=== PATIENT | female | born 1980 | race African-American/Black ===

== ENCOUNTER → 2017-04-27 | Outpatient (CLI) | payer BC ==
--- NOTE | 2017-04-27 09:22 | USB ---
EXAMINATION TYPE: US breast workup limited RT DATE OF EXAM: 04/27/2017 COMPARISON: Mammogram dated 04/27/2017. CLINICAL HISTORY: ABNORMAL MAMMOGRAM. Targeted right breast ultrasound was performed in regards to an area of architectural distortion with in the upper inner right breast seen on the mammogram of 04/27/2017 and additional approximately 6 mm m ass in the central upper right breast. At the 1:00 position there is a benign sonographic cyst measuring 5 x 3 x 5 mm demonstrating increase d through transmission. This a benign finding and requires no further follow-up, likely corresponding to the 6 mm mass in the central upper right breast. At the 12:00 position there is a hypoechoic 0.6 x 0.4 x 0.3 cm mass with an angular margin and periph eral vascular flow, for which ultrasound-guided core needle biopsy is recommended. It is uncertain if this corresponds to the area of architectural distortion within the upper inner right breast as the office machine technician notes the patient's breasts to be very mobile. Correlation with post biopsy marker mammog zhang is recommended. If this does not correlate with the area of architectural distortion, 6 month fol low-up would be recommended for that finding. IMPRESSION: Suspicious finding. Ultrasound guided core biopsy is recommended for a 6 mm mass at the 12:00 position within the right breast.
--- NOTE | 2017-05-01 09:05 | MM ---
Reason for exam: screening (asymptomatic). Baseline mammogram. History: Took hormonal contraceptives beginning at age 19. Physical Findings: Nurse did not find any significant physical abnormalities on exam. MG Screening Mammo w CAD Bilateral CC and MLO view(s) were taken. ASSESSMENT: Incomplete: need additional imaging evaluation, BI-RAD 0 RECOMMENDATION: Special view mammogram of the right breast. If lesion persists on supplemental views, image directed ultrasound is recommended. [facility] will attempt to contact patient to return for supplemental views and ultrasound if indicated.
--- NOTE | 2017-05-01 09:07 | MM ---
Reason for exam: additional evaluation requested from abnormal screening. History: Took hormonal contraceptives beginning at age 19. Physical Findings: Breast exam preformed at baseline screening. MG Work Up Mamm w CAD RT ML, spot compression CC, and spot compression MLO view(s) were taken of the right breast. Focal asymmetry upper inner quadrant, 9-10cm from nipple, persists on spot views. These results were verbally communicated with the patient and result sheet given to the patient on 04/27/17. ASSESSMENT: Incomplete: need additional imaging evaluation, BI-RAD 0 RECOMMENDATION: Ultrasound of the right breast.
== END | disposition home or self-care (01) ==
LOC: RADMAMWWP 07:37
PROVIDERS: ATTEND Obstetrics & Gynecology
DX: Z12.31 Encounter for screening mammogram for malignant neoplasm of breast (principal); R92.8 Other abnormal and inconclusive findings on diagnostic imaging of breast
CPT/HCPCS: 76642; G0202; G0206

== ENCOUNTER → 2017-05-05 | Day surgery (SDC) | payer BC ==
[2017-05-05 10:56] VITALS: RESP 16; BMI 30.4
[2017-05-05 12:43] VITALS: BP 117/78; PULSE 74; TEMP 98.2
--- NOTE | 2017-05-05 13:27 | USB ---
EXAMINATION TYPE: US biopsy breast VAD RT, MG diagnostic mammo RT wo CAD DATE OF EXAM: 05/05/2017 CLINICAL HISTORY: R92.8 ABN MAMMO. Abnormal ultrasound TECHNIQUE: Ultrasound guided core biopsy of right breast with clip placement and follow-up two-view mammogram. COMPARISON: Right breast mammogram and ultrasound studies December 26, 2016 FINDINGS: The procedure of ultrasound guided core biopsy was explained to the patient. Benefits, alternatives, and risks were discussed. An informed consent was then obtained. The patient was placed in supine positioning for imaging and for the procedure. Preprocedure ultrasound redemonstrates a 5 mm oval circumscribed hypoechoic anechoic lesion at 12 to 1:00 position in the right breast. The overlying skin was prepped and draped in usual sterile fashion. Lidocaine was used as anesthetic into the skin. Lidocaine with epinephrine is used as anesthetic into the deeper tissue up to area of concern in the right breast. A perry was made with surgical scalpel. Under ultrasound guidance, a 12-gauge vacuum assisted biopsy gun device was used to obtain 3 core samples. Following this, a biopsy clip was left in lesion. The patient tolerated the procedure well without any immediate complication. The patient was kept in the radiology department for short stay after the procedure and then discharged home in stable condition. Postprocedure mammogram shows successful deployment of the clip without obvious residual lesion though no obvious lesion is seen on background of heterogeneous dense tissue to me on original workup. IMPRESSION: Successful, uncomplicated ultrasound guided core biopsy of area of concern in the right breast, full pathology results to follow. Low index of suspicion noted at time of procedure. Pathology Results: Benign BREAST, RIGHT, CORE BIOPSY: FIBROCYSTIC CHANGES INCLUDING FIBROADENOMATOID HYPERPLASIA, FIBROSIS, CYSTS AND APOCRINE METAPLASIA. Recommendation Follow up mammogram of the right breast in 6 months. (as the clip does not correspond to the mammographic finding) [facility]
== END ==
LOC: RADUSWWP 10:31
PROVIDERS: ATTEND Surgery
DX: R92.8 Other abnormal and inconclusive findings on diagnostic imaging of breast (principal); N62 Hypertrophy of breast; N60.31 Fibrosclerosis of right breast; N60.01 Solitary cyst of right breast; N60.81 Other benign mammary dysplasias of right breast
CPT/HCPCS: 88305; 19083; G0206; A4648; J2001

== ENCOUNTER → 2017-11-10 | Outpatient (CLI) | payer BC ==
--- NOTE | 2017-11-10 08:27 | MM ---
Reason for exam: follow-up at short interval from prior study. Last mammogram was performed 6 months ago. History: Benign US biopsy breast VAD RT of the right breast, May 05, 2017. Took hormonal contraceptives beginning at age 19. Physical Findings: Nurse did not find any significant physical abnormalities on exam. MG 3D Diag Mammo W/Cad RT CC and MLO view(s) were taken of the right breast. Prior study comparison: May 05, 2017, right breast MG diagnostic mammo RT wo CAD. April 27, 2017, right breast MG work up mamm w CAD RT. The breast tissue is heterogeneously dense. This may lower the sensitivity of mammography. The previously questioned upper inner quadrant asymmetry is less defined. No persisting abnormality on the 3D images. These results were verbally communicated with the patient and result sheet given to the patient on 11/10/17. ASSESSMENT: Negative, BI-RAD 1 RECOMMENDATION: Routine screening mammogram of the right breast at age 40.
== END | disposition home or self-care (01) ==
LOC: RADMAMWWP 06:57
PROVIDERS: ATTEND Family Medicine
DX: N60.11 Diffuse cystic mastopathy of right breast (principal)
CPT/HCPCS: 77065; G0279

== ENCOUNTER → 2018-01-19 | Outpatient (CLI) | payer BC ==
--- NOTE | 2018-01-19 23:52 | MR ---
EXAMINATION TYPE: MR lumbar spine wo con DATE OF EXAM: 01/19/2018 COMPARISON: NONE HISTORY: Low back pain / Numbness of Right Leg TECHNIQUE: Multiplanar, multisequence images of the lumbar spine were acquired. Multiplanar multi echo imaging of the lumbar spine was performed without contrast. FINDINGS: Lumbar vertebra have normal spacing and alignment. There is a small posterior disc bulge at L5-S1. Th ere is developmentally adequate spinal canal. There is no spinal stenosis. Neural foramina are widely patent. There is no compression fracture. Visualized sacroiliac joints appear normal. There is no nae mbar paraspinal mass. I see no bony destructive process. IMPRESSION: Small posterior L5-S1 disc bulge. Otherwise negative exam. No fracture. No spinal stenosis.
== END | disposition home or self-care (01) ==
LOC: RADMRIMAIN 20:08
PROVIDERS: ATTEND Nurse Practitioner Family
DX: M51.27 Other intervertebral disc displacement, lumbosacral region (principal)
CPT/HCPCS: 72148

== ENCOUNTER → 2018-04-10 | Outpatient (CLI) | payer BC ==
[2018-04-11 00:56] LABS: Vitamin D 25 Hydroxy 21.4 ng/mL (30.0-100.0)
[2018-04-11 01:30] LABS: Hemoglobin A1C 5.4 % (4.0-6.0)
== END | disposition home or self-care (01) ==
LOC: LABWHC1 15:44
PROVIDERS: ATTEND Psychiatry & Neurology Neurology
DX: G62.9 Polyneuropathy, unspecified (principal)
CPT/HCPCS: 36415; 82306; 82607; 83036

== ENCOUNTER → 2018-04-30 | Outpatient (CLI) | payer BC ==
--- NOTE | 2018-04-30 18:50 | MR ---
EXAMINATION TYPE: MR cervical spine wo con DATE OF EXAM: 04/30/2018 COMPARISON: HISTORY: TECHNIQUE: Multiplanar, multisequence images of the cervical spine were acquired. C2-C3: No evidence for degenerative disc disease. No disc bulge/herniation or protrusion. No Canal stenosis. Foramina are patent bilaterally. C3-C4: Small posterior disc bulge causes minimal anterior mass effect on the thecal sac. C4-C5: No evidence for degenerative disc disease. No disc bulge/herniation or protrusion. No Canal stenosis. Foramina are patent bilaterally. C5-C6: Posterior broad-based disc bulge causes mild anterior mass effect on the thecal sac. No signif icant central stenosis or foraminal encroachment. Minimal spondylosis, endplate discogenic marrow sig nal change. C6-C7: No evidence for degenerative disc disease. No disc bulge/herniation or protrusion. No Canal stenosis. Foramina are patent bilaterally. C7-T1: No evidence for degenerative disc disease. No disc bulge/herniation or protrusion. No Canal stenosis. Foramina are patent bilaterally. Cervical segments are intact. There is normal alignment. Cervical spinal cord is of normal signal. Craniovertebral junction relationships are within normal limits. Some loss of disc signal present a t C5-6. IMPRESSION: Mild degenerative disc disease.
== END ==
LOC: RADMRIMAIN 17:44
PROVIDERS: ATTEND Psychiatry & Neurology Neurology
DX: M51.16 Intervertebral disc disorders with radiculopathy, lumbar region (principal)
CPT/HCPCS: 72141

== ENCOUNTER → 2018-07-11 | Day surgery (SDC) | payer BC ==
[2018-07-09 08:55] VITALS: BMI 31.5
[~2018-07-11] MED LIST: SODIUM CHLORIDE 0.9% 500 ML 500 ML IV SCH
[2018-07-11 10:15] VITALS: TEMP 98.1
--- NOTE | 2018-07-11 11:44 | P.PCN ---
Date of Procedure: 07/11/18 Procedure(s) Performed: Preoperative diagnosis: Multiple sclerosis Post operative diagnoses: Multiple sclerosis Anesthesia= moderate sedation with Versed 2 mg and fentanyl 100 g ,and local infiltration with lidocaine 1% 3 mL. Condition: stable Complication: none. Description of the procedure procedure risk and benefits discussed with the patient and family, consent signed. Patient and the procedure area placed in lateral position back prepped with chlorhexidine 3 times been local infiltration of the skin and subcutaneous tissue with lidocaine 1% 3 mL for skin and subcu interstitial frustrations at L4 5 levels then 22-gauge Quincke- type needle advanced slowly at L4- 5 interlaminar space there was positive cerebrospinal fluid which was clear, no heme, no paresthesia ,total of 8 ML of clear cerebrospinal fluid collected in 4 different tubes 2 mL in each, then the needle removed and a Band-Aid applied and patient tolerated the procedure well without any complications.
[2018-07-11 11:53] LABS: T4, Free (Free Thyroxine) 0.97 ng/dL (0.78-2.19)
[2018-07-11 12:24] VITALS: PULSE 72
[2018-07-11 12:25] VITALS: BP 127/77; RESP 18
[2018-07-11 12:31] LABS: Glucose,CSF 48 mg/dL (40-70); Total Protein,CSF 41 mg/dL (12-60)
[2018-07-11 13:19] LABS: Appearance,CSF Clear; CSF Tube Number 4; Nucleated Cells, CSF 7 u/L (0-5); Red Blood Cell,CSF 3 u/L (0-10)
[2018-07-11 13:57] LABS: Diff, Total Cells Cnt, CSF 100; Mononuclear WBC,CSF 99 %; Polynuclear WBC,CSF 1 %
[2018-07-11 17:09] LABS: Rheumatoid Factor 10 IU/mL (0-15)
[2018-07-11 18:22] LABS: Anti-DNA, DS unit <1.0 IU/mL; DNA Double-Stranded NEGATIVE (NEGATIVE); RNP 0.2 AI
[2018-07-12 12:07] LABS: IgG - CSF 6.6 mg/dL (0.0 - 3.4); IgG/Albumin Index (CSF) 1.08 (0.00 - 0.77)
[2018-07-12 15:19] LABS: APTT 46 Sec(s) (<43); APTT 1:1 Mix 37 Sec(s) (<43); DRVVT 1:1 Mix 39 Sec(s) (<44); Dilute Russell Viper Venom 51 Sec(s) (<44)
[2018-07-13 11:33] LABS: VDRL, Qualitative CSF Nonreactive (Nonreactive)
[2018-07-13 13:12] LABS: Lyme IgG/IgM 0.1 Index
== END ==
LOC: ORPAIN 09:55
PROVIDERS: ATTEND Specialist
DX: G35 Multiple sclerosis (principal); Z88.5 Allergy status to narcotic agent; I10 Essential (primary) hypertension
CPT/HCPCS: 81025; 87476; 86592 ×2; 86235 ×3; 84439; 88108; 84157; 82945; 82040; 82042; 82784; 83916; 83873; 84443; 84450; 84460; 85730; 86431; 85613; 89050; 86618; 86038; 86225; 62270; J2250; J3010; 85732; 99152

== ENCOUNTER 2018-07-13 13:36 | Emergency (ER) | payer BC ==
[2018-07-13] MEDS ORDERED: SODIUM CHLORIDE 0.9% 1,000 ML IV ONE (14:40)
[2018-07-13] MEDS ORDERED: KETOROLAC 30 MG/ML 1 ML VIAL IVP STA (14:41)
[2018-07-13] MEDS ORDERED: ONDANSETRON 4 MG/2 ML VIAL IVP STA (14:42)
--- NOTE | 2018-07-13 14:46 | ED ---
Headache HPI - General Chief Complaint: Headache Stated Complaint: headache Time Seen by Provider: 07/13/18 14:00 Mode of arrival: ambulatory Limitations: no limitations - History of Present Illness Initial Comments: 38-year-old female past medical history of MS and hypertension presenting today for chief complaint of headache. Patient states that she had a spinal tap performed by Dr. Gomez on Monday (2 days ago), 24 hours later she began experiencing headache, mild nausea and photophobia. She states that the headache is worse when upright, standing or walking. Patient states that headache intensity is greatly decreased with laying flat. Patient denies fever , chills, nuchal rigidity, night sweats, vomiting, abdominal pain. Remainder was negative. Upon arrival patient appears well, vital signs stable afebrile. - Related Data Home Medications Medication Instructions Recorded Confirmed Hydrochlorothiazide 25 mg PO DAILY 05/02/17 07/13/18 Escitalopram [Lexapro] 20 mg PO HS 07/09/18 07/13/18 Previous Rx's Medication Instructions Recorded Ibuprofen [Motrin] 600 mg PO Q6HR PRN 7 Days #28 tab 07/13/18 Ondansetron Odt [Zofran Odt] 4 mg PO Q8HR PRN 3 Days #15 tab 07/13/18 Allergies Allergy/AdvReac Type Severity Reaction Status Date / Time codeine Allergy Rash/Hives Verified 07/13/18 14:19 Review of Systems ROS Statement: Those systems with pertinent positive or pertinent negative responses have been documented in the HPI. ROS Other: All systems not noted in ROS Statement are negative. Constitutional: Denies: fever, chills, night sweats Eyes: Reports: as per HPI. Denies: vision change ENT: Denies: hearing loss Respiratory: Denies: cough, dyspnea, wheezes, hemoptysis, stridor Cardiovascular: Denies: chest pain, palpitations Gastrointestinal: Reports: nausea. Denies: abdominal pain, vomiting, diarrhea Genitourinary: Denies: urgency, dysuria Musculoskeletal: Denies: back pain Skin: Denies: rash Neurological: Reports: headache (increased with upright position). Denies: numbness, paresthesias, confusion, abnormal gait Past Medical History Past Medical History: Hypertension Additional Past Medical History / Comment(s): POSSIBLE MS. MENSTRUAL DISORDER Lmp 08/03/14 History of Any Multi-Drug Resistant Organisms: None Reported Past Surgical History: Cholecystectomy Additional Past Surgical History / Comment(s): cholecystectomy 2012, Past Anesthesia/Blood Transfusion Reactions: No Reported Reaction Past Psychological History: Anxiety Smoking Status: Never smoker Past Alcohol Use History: None Reported Past Drug Use History: None Reported - Past Family History Mother Family Medical History: Cancer Father Family Medical History: Cancer Brother(s) Family Medical History: Blood Disorder Additional Family Medical History / Comment(s): BLOOD CLOTS TO MUCH-NOT SURE OF NAME Sister(s) Family Medical History: Blood Disorder Additional Family Medical History / Comment(s): ITP General Exam - General Exam Comments Initial Comments: General: The patient is awake and alert, in no distress, and does not appear acutely ill. Eye: Pupils are equal, round and reactive to light, extra-ocular movements are intact. No APD or photophobia. No nystagmus. There is normal conjunctiva bilaterally. No signs of icterus. Ears, nose, mouth and throat: There are moist mucous membranes and no oral lesions. Neck: The neck is supple, there is no tenderness or JVD. No nuchal rigidity, negative Brudzinski's and Kernig sign. Cardiovascular: There is a regular rate and rhythm. No murmur, rub or gallop is appreciated. Respiratory: Lungs are clear to auscultation, respirations are non-labored, breath sounds are equal. No wheezes, stridor, rales, or rhonchi. Musculoskeletal: Normal ROM, no tenderness. Strength 5/5. Sensation intact. Radial pulses equal bilaterally 2+. Neurological: A&O x 3. CN II-XII intact, There are no obvious motor or sensory deficits. Coordination appears grossly intact. Speech is normal. Skin: Skin is warm and dry and no rashes or lesions are noted. Psychiatric: Cooperative, appropriate mood & affect, normal judgment. Limitations: no limitations Course Vital Signs 07/13/18 07/13/18 07/13/18 13:40 16:33 19:19 Temperature 98.6 F 98.8 F 97.1 F L Pulse Rate 87 70 76 Respiratory 18 16 18 Rate Blood Pressure 140/92 127/84 126/93 O2 Sat by Pulse 100 100 99 Oximetry Medical Decision Making - Medical Decision Making Pt afebrile. Patient given 1 L fluid. Zofran for nausea. Pain management with Dilaudid and Toradol. Upon multiple reevaluations patient stated that her symptoms have resolved 90%, she has had no episodes of vomiting. She states that she is feeling better would like to go home. She refused anesthesia consult for blood patch at this time for treatment of LP headache, states she will return for worsening symptoms. Case discussed in detail with Dr. Xie, at this time we feel comfortable discharging patient with follow-up with neurology in 1-2 days. Patient agrees with plan verbalizing understanding. Patient was given a prescription for Zofran and ibuprofen 800mg for nausea and pain management. Return parameters discussed in detail patient, patient verbalized understanding. This time feel patient is stable for discharge. - Lab Data Result diagrams: 07/13/18 14:55 07/13/18 14:55 Lab Results 07/13/18 07/13/18 Range/Units 14:55 14:55 WBC 10.5 (3.8-10.6) k/uL RBC 4.98 (3.80-5.40) m/uL Hgb 13.8 (11.4-16.0) gm/dL Hct 41.5 (34.0-46.0) % MCV 83.2 (80.0-100.0) fL MCH 27.7 (25.0-35.0) pg MCHC 33.3 (31.0-37.0) g/dL RDW 13.8 (11.5-15.5) % Plt Count 257 (150-450) k/uL Neutrophils % 78 % Lymphocytes % 15 % Monocytes % 4 % Eosinophils % 1 % Basophils % 0 % Neutrophils # 8.2 H (1.3-7.7) k/uL Lymphocytes # 1.6 (1.0-4.8) k/uL Monocytes # 0.5 (0-1.0) k/uL Eosinophils # 0.1 (0-0.7) k/uL Basophils # 0.0 (0-0.2) k/uL Sodium 140 (137-145) mmol/L Potassium 3.6 (3.5-5.1) mmol/L Chloride 102 (98-107) mmol/L Carbon Dioxide 25 (22-30) mmol/L Anion Gap 13 mmol/L BUN 8 (7-17) mg/dL Creatinine 0.82 (0.52-1.04) mg/dL Est GFR (CKD-EPI)AfAm >90 (>60 ml/min/1.73 sqM) Est GFR (CKD-EPI)NonAf >90 (>60 ml/min/1.73 sqM) Glucose 92 (74-99) mg/dL Calcium 10.3 H (8.4-10.2) mg/dL Total Bilirubin 0.7 (0.2-1.3) mg/dL AST 22 (14-36) U/L ALT 15 (9-52) U/L Alkaline Phosphatase 64 (38-126) U/L Total Protein 9.7 H (6.3-8.2) g/dL Albumin 5.1 H (3.5-5.0) g/dL Disposition Clinical Impression: Lumbar puncture headache Disposition: HOME SELF-CARE Condition: Good Instructions: Acute Headache (ED) Additional Instructions: Please use medication as discussed. Please follow-up with Dr. Gomez in next 1 -2 days. Please return to emergency room if the symptoms increase or worsen or for any other concerns. Prescriptions: Ibuprofen [Motrin] 600 mg PO Q6HR PRN 7 Days #28 tab PRN Reason: Headache Ondansetron Odt [Zofran Odt] 4 mg PO Q8HR PRN 3 Days #15 tab PRN Reason: Nausea And Vomiting Is patient prescribed a controlled substance at d/c from ED?: No Referrals: Luis Valdivia III, MD [Primary Care Provider] - 1-2 days Arturo Gomez MD [STAFF PHYSICIAN] - 1-2 days Time of Disposition: 19:03
[2018-07-13] MEDS ORDERED: MORPHINE SULFATE 2 MG/ML SYRINGE IVP STA (15:07)
[2018-07-13 15:14] LABS: Basophils % (A) 0 %; Eosinophils # (A) 0.1 k/uL (0-0.7); Eosinophils % (A) 1 %; HCT 41.5 % (34.0-46.0); HGB 13.8 gm/dL (11.4-16.0); Lymphocytes # (A) 1.6 k/uL (1.0-4.8); Lymphocytes % (A) 15 %; MCH 27.7 pg (25.0-35.0); MCHC 33.3 g/dL (31.0-37.0); MCV 83.2 fL (80.0-100.0); Mean Platelet Volume 6.9; Monocytes # (A) 0.5 k/uL (0-1.0); Monocytes % (A) 4 %; Neutrophils # (A) 8.2 k/uL (1.3-7.7); Neutrophils % (A) 78 %; Platelet Count 257 k/uL (150-450); RBC 4.98 m/uL (3.80-5.40); RDW 13.8 % (11.5-15.5); WBC 10.5 k/uL (3.8-10.6)
[2018-07-13 15:29] LABS: ALT 15 U/L (9-52); AST 22 U/L (14-36); Albumin 5.1 g/dL (3.5-5.0); Alkaline Phosphatase 64 U/L (38-126); Anion Gap 13 mmol/L; Blood Urea Nitrogen 8 mg/dL (7-17); Calcium 10.3 mg/dL (8.4-10.2); Carbon Dioxide 25 mmol/L (22-30); Chloride 102 mmol/L (98-107); Glucose 92 mg/dL (74-99); Potassium 3.6 mmol/L (3.5-5.1); Sodium 140 mmol/L (137-145); Total Bilirubin 0.7 mg/dL (0.2-1.3); Total Protein 9.7 g/dL (6.3-8.2)
[2018-07-13] MEDS ORDERED: HYDROmorphone 1 MG/ML 1 ML SYRINGE IVP STA (16:27)
[2018-07-13 19:20] VITALS: BP 126/93; PULSE 76; RESP 18; TEMP 97.1
== END 2018-07-13 19:19 | disposition home or self-care (01) ==
LOC: EC 13:36
DX: G97.1 Other reaction to spinal and lumbar puncture (principal); R11.0 Nausea; H53.149 Visual discomfort, unspecified; I10 Essential (primary) hypertension; F41.9 Anxiety disorder, unspecified; Z79.899 Other long term (current) drug therapy; Z88.5 Allergy status to narcotic agent
CPT/HCPCS: 36415; 80053; 85025; 99284; 96374; 96375 ×3; 96361; J2405; J1885; J2270; J1170

== ENCOUNTER 2018-07-15 16:03 | Emergency (ER) | payer BC ==
[2018-07-15] MEDS ORDERED: MORPHINE SULFATE 4 MG/ML SYRINGE IVP STA (16:31)
[2018-07-15] MEDS ORDERED: methylPREDNISolone SOD SUCCI 250 MG in SODIUM CHLORIDE 0.9% 100 ML IVPB STA (16:31)
[2018-07-15] MEDS ORDERED: DIAZEPAM 5 MG/ML 2 ML INJ IVP STA (16:31)
[2018-07-15] MEDS ORDERED: METOCLOPRAMIDE 5 MG/ML 2 ML VIAL IVP STA (16:31)
[2018-07-15] MEDS ORDERED: KETOROLAC 30 MG/ML 1 ML VIAL IVP STA (16:31)
[2018-07-15] MEDS ORDERED: SODIUM CHLORIDE 0.9% 1,000 ML IV STA (16:31)
[2018-07-15] MEDS ORDERED: diphenhydrAMINE 50 MG/ML 1 ML VIAL IVP STA (16:31)
--- NOTE | 2018-07-15 16:47 | ED ---
Headache HPI - General Chief Complaint: Headache Stated Complaint: Back/Neck/Head Pain Time Seen by Provider: 07/15/18 16:25 Source: RN notes reviewed, old records reviewed Mode of arrival: ambulatory Limitations: no limitations - History of Present Illness Initial Comments: This is a 30-year-old female the ER for evaluation. This patient resents today for evaluation regards to headache. Severe headache. Patient has history of headache and current headache. Patient has recent history of lumbar puncture since lumbar puncture is had headache and has to be evaluated in the emergency room for this headache. Patient states her headache was improved when she last left the ER with symptoms have recurred and persisted. Patient denies any trauma, no fevers no neurological complaint MD Complaint: headache -: days(s) (4) Onset Description: other (Positional, post LP) Location: diffuse Severity: moderate Severity scale (1-10): 5 Quality: aching, throbbing Consistency: constant Improves With: medication Worsens With: sitting/standing - Related Data Home Medications Medication Instructions Recorded Confirmed Hydrochlorothiazide 25 mg PO DAILY 05/02/17 07/13/18 Escitalopram [Lexapro] 20 mg PO HS 07/09/18 07/13/18 Previous Rx's Medication Instructions Recorded Ibuprofen [Motrin] 600 mg PO Q6HR PRN 7 Days #28 tab 07/13/18 Ondansetron Odt [Zofran Odt] 4 mg PO Q8HR PRN 3 Days #15 tab 07/13/18 Allergies Allergy/AdvReac Type Severity Reaction Status Date / Time codeine Allergy Rash/Hives Verified 07/15/18 16:10 Review of Systems ROS Statement: Those systems with pertinent positive or pertinent negative responses have been documented in the HPI. ROS Other: All systems not noted in ROS Statement are negative. Past Medical History Past Medical History: Hypertension Additional Past Medical History / Comment(s): POSSIBLE MS. MENSTRUAL DISORDER Lmp 08/03/14 History of Any Multi-Drug Resistant Organisms: None Reported Past Surgical History: Cholecystectomy Additional Past Surgical History / Comment(s): cholecystectomy 2011, Past Anesthesia/Blood Transfusion Reactions: No Reported Reaction Past Psychological History: Anxiety Smoking Status: Never smoker Past Alcohol Use History: None Reported Past Drug Use History: None Reported - Past Family History Mother Family Medical History: Cancer Father Family Medical History: Cancer Brother(s) Family Medical History: Blood Disorder Additional Family Medical History / Comment(s): BLOOD CLOTS TO MUCH-NOT SURE OF NAME Sister(s) Family Medical History: Blood Disorder Additional Family Medical History / Comment(s): ITP General Exam Limitations: no limitations General appearance: alert, in no apparent distress Head exam: Present: atraumatic, normocephalic, normal inspection Eye exam: Present: normal appearance, PERRL, EOMI. Absent: scleral icterus, conjunctival injection, periorbital swelling ENT exam: Present: normal exam, mucous membranes moist Neck exam: Present: normal inspection. Absent: tenderness, meningismus, lymphadenopathy Respiratory exam: Present: normal lung sounds bilaterally. Absent: respiratory distress, wheezes, rales, rhonchi, stridor Cardiovascular Exam: Present: regular rate, normal rhythm, normal heart sounds. Absent: systolic murmur, diastolic murmur, rubs, gallop, clicks GI/Abdominal exam: Present: soft, normal bowel sounds. Absent: distended, tenderness, guarding, rebound, rigid Extremities exam: Present: normal inspection, full ROM, normal capillary refill. Absent: tenderness, pedal edema, joint swelling, calf tenderness Back exam: Present: normal inspection Neurological exam: Present: alert, oriented X3, CN II-XII intact Psychiatric exam: Present: normal affect, normal mood Skin exam: Present: warm, dry, intact, normal color. Absent: rash Course Vital Signs 07/15/18 16:08 Temperature 98.4 F Pulse Rate 78 Respiratory 18 Rate Blood Pressure 126/87 O2 Sat by Pulse 98 Oximetry - Reevaluation(s) Reevaluation #1: 07/15/18 17:44 Medical record, prior ER visit has been reviewed Reevaluation #2: 07/15/18 17:44 Patient's headache is significantly improved Medical Decision Making - Medical Decision Making 30 female the ER for evasive severe headache, patient encouraged increased caffeine intake, etc., otherwise patient continues to follow-up with resolution of headache. Disposition Clinical Impression: Lumbar puncture headache Disposition: HOME SELF-CARE Condition: Good Instructions: Acute Headache (ED) Is patient prescribed a controlled substance at d/c from ED?: No Referrals: Luis Valdivia III, MD [Primary Care Provider] - 1-2 days
[2018-07-15] MEDS ORDERED: HYDROmorphone 1 MG/ML 1 ML SYRINGE IVP STA (19:09)
[2018-07-15 20:18] VITALS: BP 128/80; PULSE 74; RESP 16; TEMP 98.6
== END 2018-07-15 20:16 | disposition home or self-care (01) ==
LOC: EC 16:03
DX: G97.1 Other reaction to spinal and lumbar puncture (principal); I10 Essential (primary) hypertension; F41.9 Anxiety disorder, unspecified; Z79.899 Other long term (current) drug therapy; Z88.5 Allergy status to narcotic agent; Y84.4 Aspiration of fluid as the cause of abnormal reaction of the patient, or of later complication, without mention of misadventure at the time of the procedure
CPT/HCPCS: 99284; 96365; 96366 ×2; 96375 ×6; J2270; J1200; J2765; J2930; J3360; J1885; J1170

== ENCOUNTER → 2018-08-29 | Outpatient (CLI) | payer BC ==
[2018-08-30 04:10] LABS: ALT 13 U/L (8-44); AST 20 U/L (13-35)
== END | disposition home or self-care (01) ==
LOC: LABWHC1 17:15
PROVIDERS: ATTEND Psychiatry & Neurology Neurology
DX: G35 Multiple sclerosis (principal)
CPT/HCPCS: 36415; 82306; 84450; 84460

== ENCOUNTER → 2019-10-22 | Outpatient (CLI) | payer BC ==
[2019-10-23 00:04] LABS: T4, Free (Free Thyroxine) 0.9 ng/dL (0.80-1.80)
== END | disposition home or self-care (01) ==
LOC: LABWHC1 16:27
PROVIDERS: ATTEND Psychiatry & Neurology Neurology
DX: G35 Multiple sclerosis (principal); E55.9 Vitamin D deficiency, unspecified; Z79.899 Other long term (current) drug therapy
CPT/HCPCS: 36415; 82306; 84439; 84443

== ENCOUNTER → 2020-04-06 | Outpatient (CLI) | payer BC ==
--- NOTE | 2020-04-08 10:28 | MM ---
Reason for exam: screening (asymptomatic). Last mammogram was performed 2 years and 5 months ago. History: Patient is postmenopausal. Benign US biopsy breast VAD RT of the right breast, May 05, 2017. Took hormonal contraceptives beginning at age 19. Physical Findings: A clinical breast exam by your physician is recommended on an annual basis and results should be correlated with mammographic findings. MG Screening Mammo w CAD Bilateral CC and MLO view(s) were taken. Prior study comparison: November 10, 2017, right breast MG 3d diag mammo w/cad RT. May 05, 2017, right breast MG diagnostic mammo RT wo CAD. Previous mammotome biopsy in the right breast. No significant changes when compared with prior studies. ASSESSMENT: Negative, BI-RAD 1 RECOMMENDATION: Routine screening mammogram of both breasts in 1 year.
== END | disposition home or self-care (01) ==
LOC: RADMAMWWP 10:08
PROVIDERS: ATTEND Obstetrics & Gynecology
DX: Z12.31 Encounter for screening mammogram for malignant neoplasm of breast (principal)
CPT/HCPCS: 77067

== ENCOUNTER → 2020-04-17 | Outpatient (CLI) | payer BC ==
--- NOTE | 2020-04-17 17:57 | US ---
EXAMINATION TYPE: US thyroid st tissue head/neck DATE OF EXAM: 04/17/2020 COMPARISON: 11/18/2014 CLINICAL HISTORY: R22.1 Localized swelling, mass and lump. Patient can feel a palpable lump just unde r her chin x2 years Three probable lymph nodes visualized in the area of the patient's palpable lump, largest measuring 0 .8 x 0.5 x 0.4 cm IMPRESSION: 1. There are 3 hypoechoic nodules with the largest measuring only 8 x 5 x 4 mm in the thyroid bed. Th ere appears to be an echogenic's Center suggesting that these are most likely related to small lymph nodes. Correlate clinically
== END | disposition home or self-care (01) ==
LOC: RADUSWWP 16:55
PROVIDERS: ATTEND Family Medicine
DX: R22.1 Localized swelling, mass and lump, neck (principal)
CPT/HCPCS: 76536

== ENCOUNTER → 2020-06-26 | Outpatient (CLI) | payer BC ==
--- NOTE | 2020-06-26 15:47 | MR ---
EXAMINATION TYPE: MR brain wo/w con DATE OF EXAM: 06/26/2020 COMPARISON: Prior MRI brain May 29, 2018 HISTORY: Multiple sclerosis. TECHNIQUE: Multiplanar, multisequence images of the brain and brainstem is performed without and with IV contras t, utilizing 7.5 mL intravenous Gadavist gadolinium contrast is administered intravenously. Demyelin ating disease protocol with additional Sagittal Flair sequence performed. FINDINGS: T2 Lesions Present : Yes Approximate Number of Lesions: Approximately 20 Locations Identified : Predominantly deep and periventricular levels. Size of Reference Lesion(s): 1. Stable 7 x 4 x 5 mm deep right frontal lesion axial image 20 and coronal image 22 Enhancing Lesion(s) Present: No T1 Hypointense Lesion(s) Present: Yes Change from Prior: Stable Diffusion weighted images demonstrate no evidence of a recent infarct or other diffusion abnormality. There is no worrisome extra-axial fluid collection. The ventricular system and cisternal spaces ar e normal in size and appearance. The brain volume is age appropriate. Midline structures demonstrate normal morphology. The craniocervical junction appears within normal limits. Post contrast images demonstrate no abnormal enhancement. The dural venous sinuses appear pa tent. The visualized sinuses are clear and the globes are intact. IMPRESSION: [id number] nonspecific white matter changes redemonstrated presumed on basis of kno wn demyelinating disease. No new or enhancing lesions clearly seen.
== END | disposition home or self-care (01) ==
LOC: RADMRIMAIN 14:52
PROVIDERS: ATTEND Psychiatry & Neurology Neurology
DX: R90.82 White matter disease, unspecified (principal)
CPT/HCPCS: 70553; A9585

== ENCOUNTER → 2020-09-07 | Outpatient (CLI) | payer BC ==
[2020-09-07 17:48] LABS: HGB 12.2 gm/dL (11.4-16.0); MCH 27.6 pg (25.0-35.0); MCV 83.7 fL (80.0-100.0); Mean Platelet Volume 7.3; Platelet Count 259 k/uL (150-450); RBC 4.42 m/uL (3.80-5.40); RDW 13.7 % (11.5-15.5); WBC 8.7 k/uL (3.8-10.6)
[2020-09-08 03:55] LABS: Total Bilirubin 0.5 mg/dL (0.3-1.2)
== END | disposition home or self-care (01) ==
LOC: LABWHC1 15:44
PROVIDERS: ATTEND Psychiatry & Neurology Neurology
DX: G35 Multiple sclerosis (principal); Z79.899 Other long term (current) drug therapy
CPT/HCPCS: 36415; 82247; 84075; 84450; 84460; 85027; 86480

== ENCOUNTER → 2020-11-25 | Outpatient (CLI) | payer BC ==
[2020-11-26 01:10] LABS: ALT 17 U/L (8-44); AST 19 U/L (13-35); Albumin/Globulin Ratio 1.45 (1.60-3.17); Alkaline Phosphatase 49 U/L (41-126); Bilirubin, Conjugated <0.20 mg/dL (0.20-0.40); Globulin 2.9 g/dL (1.6-3.3); Total Bilirubin 0.4 mg/dL (0.3-1.2); Total Protein 7.1 g/dL (6.2-8.2)
== END | disposition home or self-care (01) ==
LOC: LABWHC1 11:45
PROVIDERS: ATTEND Psychiatry & Neurology Neurology
DX: G35 Multiple sclerosis (principal)
CPT/HCPCS: 36415; 80076

== ENCOUNTER → 2021-02-09 | Outpatient (CLI) | payer BC ==
--- NOTE | 2021-02-09 11:38 | ECHOF ---
Referral Reason:R00.2 palpitations, E78.5 hyperlipidemia MEASUREMENTS -------- HEIGHT: 154.9 cm WEIGHT: 79.4 kg BP: RVIDd: 3.5 cm (< 3.3) IVSd: 1.4 cm (0.6 - 1.1) LVIDd: 3.4 cm (3.9 - 5.3) LVPWd: 1.1 cm (0.6 - 1.1) IVSs: 1.6 cm LVIDs: 2.4 cm LVPWs: 1.5 cm LAESV Index (A-L): 27.60 ml/m Ao Diam: 2.5 cm (2.0 - 3.7) AV Cusp: 2.0 cm (1.5 - 2.6) MV EXCURSION: 19.928 mm (> 18.000) MV EF SLOPE: 59 mm/s (70 - 150) EPSS: 0.3 cm MV E Albin: 0.88 m/s MV DecT: 114 ms MV A Albin: 0.99 m/s MV E/A Ratio: 0.89 RAP: 5.00 mmHg RVSP: 30.15 mmHg FINDINGS -------- Sinus rhythm. This was a technically adequate study. The left ventricular size is normal. There is mild concentric left ventricular hypertrophy. Overa ll left ventricular systolic function is normal with, an EF between 55 - 60 %. The diastolic fillin g pattern is normal for the age of the patient 9.31. The right ventricle is mildly enlarged. Normal LA size by volume 22+/-6 ml/m2. The right atrial size is normal. Interatrial and interventricular septum intact. The aortic valve is trileaflet and appears structurally normal. There is no evidence of aortic regu rgitation. There is no evidence of aortic stenosis. There is trace mitral regurgitation. Mild tricuspid regurgitation present. There is no evidence of pulmonary hypertension. The right v entricular systolic pressure, as measured by Doppler, is 30.15mmHg. There is no pulmonic regurgitation present. The aortic root size is normal. The inferior vena cava is mildly dilated. There is no pericardial effusion. CONCLUSIONS -------- 1. The left ventricular size is normal. 2. There is mild concentric left ventricular hypertrophy. 3. Overall left ventricular systolic function is normal with, an EF between 55 - 60 %. 4. The diastolic filling pattern is normal for the age of the patient 9.31 5. The right ventricle is mildly enlarged. 6. There is trace mitral regurgitation. 7. Mild tricuspid regurgitation present. [employer] WORKER: Danyelle Chance RDCS
--- NOTE | 2021-02-09 15:17 | ECHOS ---
STRESS ECHOCARDIOGRAM LUMASON: N/A Vial INDICATIONS: Palpitations MEDICATIONS: BASELINE HEART RATE: 82 BASELINE BLOOD PRESSURE: 121/87 MAXIMUM HEART RATE: 180 MAXIMUM BLOOD PRESSURE: 190/92 85% MPHR: 153 100% MPHR: 180 METS: 10.5 MAXIMUM STAGE REACHED: 3 TOTAL EXERCISE TIME: 9 minutes 20 seconds CLINICAL INFORMATION: Baseline EKG revealed normal sinus rhythm with inferior wall, nonspecific ST abnormality. Patient walked on a standard Hayden protocol for 9 minutes 20 seconds achieved a maximal heart rate of 180 beats per minute, developed fatigue and shortness of breath. There was some artifact on the EKG, but no significant clear-cut ST-segment changes were noted to indicate ischemia. By EKG criteria, this is a negative stress test with fair exercise capacity. There was some baseline artifact. Baseline echo images revealed normal wall motion and wall thickening of all segments. At peak exercise, there was good augmentation of left ventricular wall motion and wall thickening of all segments suggesting that there is no evidence of stress-induced ischemia on this study. FINAL IMPRESSION: 1. Fair exercise capacity with a negative stress test by EKG criteria. 2. Normal stress echocardiogram without evidence of ischemia. MMODL / IJN: [id number] /
== END | disposition home or self-care (01) ==
LOC: RADECHMAIN 08:18
PROVIDERS: ATTEND Family Medicine
DX: I08.1 Rheumatic disorders of both mitral and tricuspid valves (principal)
CPT/HCPCS: 93306; 93351

== ENCOUNTER → 2021-03-04 | Outpatient (CLI) | payer BC | END | disposition home or self-care (01) | LOC: LABWHC1 11:19 | PROVIDERS: ATTEND Psychiatry & Neurology Neurology | DX: G35 Multiple sclerosis (principal); E55.9 Vitamin D deficiency, unspecified; Z79.899 Other long term (current) drug therapy | CPT/HCPCS: 36415; 82306; 82607 ==

== ENCOUNTER → 2021-03-08 | Outpatient (CLI) | payer BC ==
--- NOTE | 2021-03-18 10:22 | HM ---
48 Hour Holter monitor note: Patient wore a Holter monitor for 48 hrs from March 08 through 03/10/2021. Findings: Patient's baseline heart rate was normal sinus rhythm. There were no signficant atrial fibrillation, atrial flutter, or ventricular tachycardia episodes. There were no significant pauses greater than 2 seconds. Patient's minimum heart rate was 60. Patient's maximum heart rate was 154. Patient's average heart rate was 79. There were no symptoms noted during exam. Conclusions: Normal 48 hour Holter monitor with sinus rhythm, sinus tachycardia. No significant ventricular rhythms, atrial fibrillation, arrhythmias or pauses greater than 2 seconds. No diary to correspond with symptoms. [facility]
== END | disposition home or self-care (01) ==
LOC: RADECHMAIN 12:04
PROVIDERS: ATTEND Family Medicine
DX: R00.2 Palpitations (principal)
CPT/HCPCS: 93225; 93226

== ENCOUNTER → 2021-04-07 | Outpatient (CLI) | payer BC ==
--- NOTE | 2021-04-12 08:20 | MM ---
Reason for exam: screening (asymptomatic). Last mammogram was performed 1 year ago. History: Patient is postmenopausal. Benign US biopsy breast VAD RT of the right breast, May 05, 2017. Took hormonal contraceptives beginning at age 19. Physical Findings: A clinical breast exam by your physician is recommended on an annual basis and results should be correlated with mammographic findings. MG Screening Mammo w CAD Bilateral CC and MLO view(s) were taken. XCCL view(s) were taken of the right breast. Prior study comparison: April 06, 2020, bilateral MG screening mammo w CAD. November 10, 2017, right breast MG 3d diag mammo w/cad RT. The breast tissue is heterogeneously dense. This may lower the sensitivity of mammography. Previous mammotome biopsy in the right breast. Focal asymmetry right lower inner quadrant. No significant changes when compared with prior studies. ASSESSMENT: Benign, BI-RAD 2 RECOMMENDATION: Routine screening mammogram of both breasts in 1 year.
== END | disposition home or self-care (01) ==
LOC: RADMAMWWP 13:02
PROVIDERS: ATTEND Obstetrics & Gynecology
DX: Z12.31 Encounter for screening mammogram for malignant neoplasm of breast (principal); Z78.0 Asymptomatic menopausal state; Z79.3 Long term (current) use of hormonal contraceptives
CPT/HCPCS: 77067

== ENCOUNTER → 2021-05-21 | Outpatient (CLI) | payer BC ==
[2021-05-21 18:20] LABS: Basophils # (A) 0.07 X 10*3/uL (0.00-0.10); Basophils % (A) 0.8 %; Eosinophils # (A) 0.22 X 10*3/uL (0.04-0.35); Eosinophils % (A) 2.5 %; HGB 11.9 g/dL (12.0-15.0); Lymphocytes # (A) 1.73 X 10*3/uL (0.90-5.00); Lymphocytes % (A) 19.9 %; MCH 27.7 pg (27.0-32.0); MCHC 32.2 g/dL (32.0-37.0); Mean Platelet Volume 10.4 fL (9.5-12.2); Monocytes # (A) 0.71 X 10*3/uL (0.20-1.00); Monocytes % (A) 8.2 %; Neutrophils # (A) 5.94 X 10*3/uL (1.80-7.70); Neutrophils % (A) 68.1 %; Platelet Count 263 X 10*3/uL (140-440); WBC 8.71 X 10*3/uL (4.50-10.00)
[2021-05-21 20:34] LABS: ALT 10 U/L (8-44); AST 16 U/L (13-35); Albumin/Globulin Ratio 1.53 (1.60-3.17); Alkaline Phosphatase 61 U/L (41-126); Bilirubin, Conjugated <0.20 mg/dL (0.20-0.40); Total Bilirubin 0.3 mg/dL (0.3-1.2); Total Protein 7.6 g/dL (6.2-8.2)
== END | disposition home or self-care (01) ==
LOC: LABWHC1 15:02
PROVIDERS: ATTEND Psychiatry & Neurology Neurology
DX: E55.9 Vitamin D deficiency, unspecified (principal); G35 Multiple sclerosis; G62.9 Polyneuropathy, unspecified; R20.2 Paresthesia of skin; Z79.899 Other long term (current) drug therapy
CPT/HCPCS: 36415; 80076; 82306; 85025

== ENCOUNTER → 2021-06-21 | Outpatient (CLI) | payer BC ==
[2021-06-21 11:42] LABS: Basophils # (A) 0.05 X 10*3/uL (0.00-0.10); Basophils % (A) 0.7 %; Eosinophils # (A) 0.25 X 10*3/uL (0.04-0.35); Eosinophils % (A) 3.4 %; HCT 35.5 % (37.2-46.3); HGB 11.4 g/dL (12.0-15.0); Lymphocytes % (A) 27.5 %; MCH 26.8 pg (27.0-32.0); MCHC 32.1 g/dL (32.0-37.0); MCV 83.5 fL (80.0-97.0); Mean Platelet Volume 10.2 fL (9.5-12.2); Monocytes # (A) 0.62 X 10*3/uL (0.20-1.00); Monocytes % (A) 8.5 %; Neutrophils # (A) 4.32 X 10*3/uL (1.80-7.70); Neutrophils % (A) 59.5 %; Platelet Count 240 X 10*3/uL (140-440); RBC 4.25 X 10*6/uL (4.10-5.20); RDW 13.6 % (11.5-14.5); WBC 7.27 X 10*3/uL (4.50-10.00)
[2021-06-21 13:28] LABS: Chol/HDL Ratio 4.93; LDL Cholesterol,Calculated 120.2 mg/dL (0.0-131.0); VLDL Calculation 40.8 mg/dL (5.00-40.00)
[2021-06-21 17:18] LABS: Folate, Serum 20.7 ng/mL
== END | disposition home or self-care (01) ==
LOC: LABWHC1 07:46
PROVIDERS: ATTEND Family Medicine
DX: I10 Essential (primary) hypertension (principal); E78.5 Hyperlipidemia, unspecified; G35 Multiple sclerosis
CPT/HCPCS: 36415; 80061; 82746; 83615; 85025

== ENCOUNTER → 2021-08-13 | Outpatient (CLI) | payer BC ==
[2021-08-13 23:25] LABS: HCT 37.2 % (37.2-46.3); HGB 11.7 g/dL (12.0-15.0); MCHC 31.5 g/dL (32.0-37.0); MCV 85.9 fL (80.0-97.0); Mean Platelet Volume 10.8 fL (9.5-12.2); Platelet Count 274 X 10*3/uL (140-440); RBC 4.33 X 10*6/uL (4.10-5.20); RDW 14.2 % (11.5-14.5); WBC 10.21 X 10*3/uL (4.50-10.00)
[2021-08-14 02:53] LABS: ALT 8 U/L (8-44); AST 11 U/L (13-35); Albumin 4.6 g/dL (3.8-4.9); Albumin/Globulin Ratio 1.39 (1.60-3.17); Alkaline Phosphatase 55 U/L (41-126); Bilirubin, Conjugated <0.20 mg/dL (0.20-0.40); Globulin 3.3 g/dL (1.6-3.3); Total Protein 7.9 g/dL (6.2-8.2)
== END | disposition home or self-care (01) ==
LOC: LABWHC1 16:21
PROVIDERS: ATTEND Psychiatry & Neurology Neurology
DX: E55.9 Vitamin D deficiency, unspecified (principal); G62.9 Polyneuropathy, unspecified; G35 Multiple sclerosis; R20.2 Paresthesia of skin
CPT/HCPCS: 36415; 80076; 82306; 82607; 85027

== ENCOUNTER → 2021-11-10 | Outpatient (CLI) | payer BC ==
[2021-11-11 00:24] LABS: Basophils # (A) 0.04 X 10*3/uL (0.00-0.10); Basophils % (A) 0.5 %; Eosinophils # (A) 0.18 X 10*3/uL (0.04-0.35); Eosinophils % (A) 2.2 %; HCT 38.7 % (37.2-46.3); HGB 12.7 g/dL (12.0-15.0); Immature Grans, Automated 0.4 %; Lymphocytes # (A) 1.42 X 10*3/uL (0.90-5.00); Lymphocytes % (A) 17.4 %; MCH 27.5 pg (27.0-32.0); MCHC 32.8 g/dL (32.0-37.0); MCV 83.9 fL (80.0-97.0); Mean Platelet Volume 11.5 fL (9.5-12.2); Monocytes # (A) 0.69 X 10*3/uL (0.20-1.00); Monocytes % (A) 8.5 %; NRBC Per 100 WBC 0 /100 WBCS (0.0-0.0); Neutrophils # (A) 5.78 X 10*3/uL (1.80-7.70); Platelet Count 233 X 10*3/uL (140-440); RBC 4.61 X 10*6/uL (4.10-5.20); RBC Morphology NORMAL; RDW 13.6 % (11.5-14.5); WBC 8.14 X 10*3/uL (4.50-10.00)
[2021-11-11 00:37] LABS: African American GFR (CKD) 110.8 (60.0-200.0); Albumin 4.8 g/dL (3.8-4.9); Albumin/Globulin Ratio 1.36 (1.60-3.17); Anion Gap 15.7 mmol/L (10.00-18.00); BUN/Creat Ratio 12.67 Ratio (12.00-20.00); Blood Urea Nitrogen 9.8 mg/dL (9.0-27.0); Calcium 9.8 mg/dL (8.7-10.3); Carbon Dioxide 23.1 mmol/L (20.0-27.5); Globulin 3.5 g/dL (1.6-3.3); Non-African American GFR(CKD) 95.6 (60.0-200.0); Potassium 3.9 mmol/L (3.5-5.5); Total Bilirubin 0.3 mg/dL (0.30-1.20); Total Protein 8.2 g/dL (6.2-8.2)
== END | disposition home or self-care (01) ==
LOC: LABWHC1 16:21
PROVIDERS: ATTEND Psychiatry & Neurology Neurology
DX: E55.9 Vitamin D deficiency, unspecified (principal); G35 Multiple sclerosis; G62.9 Polyneuropathy, unspecified; R20.2 Paresthesia of skin; Z79.899 Other long term (current) drug therapy
CPT/HCPCS: 36415; 80053; 82306; 85025

== ENCOUNTER → 2022-02-19 | Outpatient (CLI) | payer BC | END | disposition home or self-care (01) | LOC: LABWHC1 11:16 | PROVIDERS: ATTEND Psychiatry & Neurology Neurology | DX: E55.9 Vitamin D deficiency, unspecified (principal) | CPT/HCPCS: 36415; 82306 ==

== ENCOUNTER → 2022-04-08 | Outpatient (CLI) | payer BC ==
--- NOTE | 2022-04-11 09:31 | MM ---
Reason for Exam: Screening (asymptomatic). Last screening mammogram was performed 12 month(s) ago. Patient History: Menarche at age 10. First Full-Term at age 21. Postmenopausal. Hormonal Contraceptives, from age 19 until age 23. 05/05/2017, Benign Core Biopsy on the right side. Risk Values: Pham 5 year model risk: 0.9%. NCI Lifetime model risk: 11.9%. Prior Study Comparison: 11/10/2017 Right Diagnostic Mammogram, [facility]. 04/06/2020 Bilateral Screening Mammogram, [facility]. 04/07/2021 Bilateral Screening Mammogram, [facility]. Tissue Density: The breast tissue is heterogeneously dense. This may lower the sensitivity of mammography. Findings: Analyzed By CAD. There is no suspicious group of microcalcifications or new suspicious mass in either breast. Asymmetric density inner right breast is unchanged. Overall Assessment: Benign, BI-RAD 2 Management: Screening Mammogram of both breasts in 1 year. A clinical breast exam by your physician is recommended on an annual basis and results should be correlated with mammographic findings. Electronically signed and approved by: Demetrius Del Toro M.D. Radiologis
== END | disposition home or self-care (01) ==
LOC: RADMAMWWP 07:32
PROVIDERS: ATTEND Obstetrics & Gynecology
DX: Z12.31 Encounter for screening mammogram for malignant neoplasm of breast (principal); Z78.0 Asymptomatic menopausal state
CPT/HCPCS: 77067

== ENCOUNTER → 2022-08-05 | Outpatient (CLI) | payer BC | END | disposition home or self-care (01) | LOC: LABWHC1 10:37 | PROVIDERS: ATTEND Psychiatry & Neurology Neurology | DX: G35 Multiple sclerosis (principal); E55.9 Vitamin D deficiency, unspecified | CPT/HCPCS: 36415; 82306 ==

== ENCOUNTER → 2023-03-04 | Outpatient (CLI) | payer BC ==
[2023-03-05 08:12] LABS: Basophils # (A) 0.07 X 10*3/uL (0.00-0.10); Basophils % (A) 1.1 %; Eosinophils # (A) 0.17 X 10*3/uL (0.04-0.35); Eosinophils % (A) 2.6 %; HCT 39.9 % (37.2-46.3); HGB 12.6 d/dL (12.0-15.0); Lymphocytes # (A) 1.28 X 10*3/uL (0.90-5.00); Lymphocytes % (A) 19.9 %; MCH 26.4 pg (27.0-32.0); MCHC 31.6 d/dL (32.0-37.0); MCV 83.5 FL (80.0-97.0); Mean Platelet Volume 10.5 FL (9.5-12.2); Monocytes # (A) 0.65 X 10*3/uL (0.20-1.00); Monocytes % (A) 10.1 %; NRBC Per 100 WBC 0 X 10*3/uL (0.00-0.01); Neutrophils # (A) 4.23 X 10*3/uL (1.80-7.70); Neutrophils % (A) 65.8 %; Platelet Count 295 X 10*3/uL (140-440); RBC 4.78 X 10*6/uL (4.10-5.20); RDW 13.9 % (11.5-14.5); WBC 6.43 X 10*3/uL (4.50-10.00)
[2023-03-05 08:37] LABS: ALT 13 U/L (8-44); AST 14 U/L (13-35); Albumin 4.6 d/dL (3.8-4.9); Albumin/Globulin Ratio 1.48 Ratio (1.60-3.17); Alkaline Phosphatase 49 U/L (41-126); BUN/Creat Ratio 9.25 Ratio (12.00-20.00); Blood Urea Nitrogen 7.4 mg/dL (9.0-27.0); Calcium 10.1 mg/dL (8.7-10.3); Carbon Dioxide 30.4 mmol/L (21.6-31.8); Chloride 99 mmol/L (96-109); Chol/HDL Ratio 4.88 Ratio; Globulin 3.1 d/dL (1.6-3.3); Glucose 77 mg/dL (70-110); LDL Cholesterol,Calculated 157.4 mg/dL (0.0-131.0); Potassium 3.8 mmol/L (3.5-5.5); Sodium 139 mmol/L (135-145); Total Bilirubin 0.7 mg/dL (0.3-1.2); Total Protein 7.7 d/dL (6.2-8.2); VLDL Calculation 19.86 mg/dL (5.00-40.00)
== END | disposition home or self-care (01) ==
LOC: LABWHC1 10:37
PROVIDERS: ATTEND Nurse Practitioner Family
DX: Z00.00 Encounter for general adult medical examination without abnormal findings (principal); Z51.81 Encounter for therapeutic drug level monitoring; G35 Multiple sclerosis; E55.9 Vitamin D deficiency, unspecified; R20.2 Paresthesia of skin; G62.9 Polyneuropathy, unspecified; Z79.899 Other long term (current) drug therapy
CPT/HCPCS: 36415; 80053; 80061; 82306; 84436; 84439; 84443; 85025

== ENCOUNTER → 2023-04-10 | Outpatient (CLI) | payer BC ==
--- NOTE | 2023-04-11 09:41 | MM ---
Reason for Exam: Screening (asymptomatic). Last screening mammogram was performed 12 month(s) ago. Patient History: Menarche at age 10. First Full-Term at age 21. Premenopausal. Hormonal Contraceptives, from age 19 until age 23. 05/05/2017, Benign Core Biopsy on the right side. Risk Values: Pham 5 year model risk: 0.8%. NCI Lifetime model risk: 9.6%. Prior Study Comparison: 04/06/2020 Bilateral Screening Mammogram, [facility]. 04/07/2021 Bilateral Screening Mammogram, [facility]. 04/08/2022 Bilateral MG screening mammo w CAD, [facility]. Tissue Density: The breast tissue is heterogeneously dense. This may lower the sensitivity of mammography. Findings: Analyzed By CAD. Pattern is symmetrical and stable. No significant interval change is evident. Couple of small focal asymmetric densities are present bilaterally. Core marker is within the right breast. There is a focal asymmetric density within the right cranial caudal projection 8 cm from the nipple. Additional workup of this area is recommended. Overall Assessment: Incomplete: need additional imaging evaluation, BI-RAD 0 Management: Diagnostic Mammogram of the right breast. A negative mammogram report should not preclude additional follow up of suspicious palpable abnormalities. Patient should continue monthly self breast exam. A clinical breast exam by your physician is recommended on an annual basis and results should be correlated with mammographic findings. Electronically signed and approved by: Adeel Silva D.O. Radiologis
== END | disposition home or self-care (01) ==
LOC: RADMAMWWP 14:49
PROVIDERS: ATTEND Obstetrics & Gynecology
DX: Z12.31 Encounter for screening mammogram for malignant neoplasm of breast (principal)
CPT/HCPCS: 77067

== ENCOUNTER → 2023-07-10 | Outpatient (CLI) | payer BC ==
--- NOTE | 2023-07-12 11:38 | MR ---
EXAMINATION TYPE: MR brain wo/w con DATE OF EXAM: 07/10/2023 9:33 PM CLINICAL INDICATION:Female, 43 years old with history of G35 MS, H53.2 diplopia, F/U MS, new -blurred vision in both eyes. COMPARISON: 06/26/2020 TECHNIQUE: Multi planar, multi sequence imaging was performed through the brain including: T1, T2, In version recovery, susceptibility weighted imaging and gradient echo imaging and Diffusion weighted im aging. The patient was then given intravenous contrast and multi planar, T1 fat-saturation images wer e obtained. IV Contrast: 7 cc Gadavist FINDINGS: No evidence for restricted diffusion or abnormal enhancement. White matter changes some of which are orthogonal to the lateral ventricles. A few the white matter c hanges including an area within the right temporal lobe subcortical white matter series 701 image 24 is more pronounced as well as in the right frontal lobe image 176 , left temporal lobe image 79 and i ncreased within the posterior frontoparietal region image 99. Other scattered white matter changes are felt to be similar to prior and 06/26/2020. The stephenson-white junctions, ventricular system, basal cisterns appear unremarkable. Diffusion-weighted imaging shows no evidence of restricted diffusion to suggest acute/subacute infarct. Intracranial ar terial flow voids are maintained. Midline structures show no abnormality. Scattered foci of high T2 s ignal intensity are seen within the periventricular white matter. The susceptibility weighted images do not reveal any evidence for micro-hemorrhage. After administration of gadolinium, no abnormal enha ncement is seen. The bone marrow signal is within normal limits. Paranasal sinuses and mastoid air cells: No significant paranasal sinus disease. Visualized orbits: Orbital contents are intact. The optic nerves and optic chiasm appear within kasey l limits. No abnormal postcontrast enhancement. IMPRESSION: No evidence for active demyelination. Mildly increased white matter changes compared to 2019 exam. Th is includes it is most pronounced in the bilateral temporal lobes and right frontal lobe.
== END | disposition home or self-care (01) ==
LOC: RADMRIMAIN 20:54
PROVIDERS: ATTEND Psychiatry & Neurology Neurology
DX: G35 Multiple sclerosis (principal); H53.2 Diplopia; R90.82 White matter disease, unspecified
CPT/HCPCS: 70553; A9585

== ENCOUNTER → 2023-09-26 | Outpatient (CLI) | payer BC ==
[2023-09-26 19:57] LABS: Basophils # (A) 0.05 X 10*3/uL (0.00-0.10); Basophils % (A) 0.8 %; Eosinophils # (A) 0.24 X 10*3/uL (0.04-0.35); Eosinophils % (A) 3.8 %; HCT 35.7 % (37.2-46.3); HGB 11.9 g/dL (12.0-15.0); Lymphocytes # (A) 1.19 X 10*3/uL (0.90-5.00); Lymphocytes % (A) 18.6 %; MCH 27.9 pg (27.0-32.0); MCHC 33.3 g/dL (32.0-37.0); MCV 83.8 FL (80.0-97.0); Mean Platelet Volume 11.2 FL (9.5-12.2); Monocytes # (A) 0.63 X 10*3/uL (0.20-1.00); Monocytes % (A) 9.8 %; NRBC Per 100 WBC 0 X 10*3/uL (0.00-0.01); Neutrophils # (A) 4.28 X 10*3/uL (1.80-7.70); Neutrophils % (A) 66.8 %; Platelet Count 230 X 10*3/uL (140-440); RBC 4.26 X 10*6/uL (4.10-5.20); RDW 13.7 % (11.5-14.5)
[2023-09-26 20:48] LABS: ALT 6 U/L (8-44); AST 13 U/L (13-35); Albumin 4.2 g/dL (3.8-4.9); Alkaline Phosphatase 40 U/L (41-126); BUN/Creat Ratio 9.88 Ratio (12.00-20.00); Blood Urea Nitrogen 7.9 mg/dL (9.0-27.0); Calcium 9.5 mg/dL (8.7-10.3); Carbon Dioxide 29.7 mmol/L (21.6-31.8); Chloride 102 mmol/L (96-109); Chol/HDL Ratio 4.47 Ratio; Globulin 2.8 g/dL (1.6-3.3); Glucose 80 mg/dL (70-110); LDL Cholesterol,Calculated 146.6 mg/dL (0.0-131.0); Potassium 3.5 mmol/L (3.5-5.5); Sodium 140 mmol/L (135-145); Total Bilirubin 0.3 mg/dL (0.3-1.2)
== END | disposition home or self-care (01) ==
LOC: LABWHC1 12:42
PROVIDERS: ATTEND Family Medicine
DX: E55.9 Vitamin D deficiency, unspecified (principal); E78.2 Mixed hyperlipidemia
CPT/HCPCS: 36415; 80053; 80061; 82306; 85025

== ENCOUNTER → 2024-01-16 | Outpatient (CLI) | payer BC ==
--- NOTE | 2024-01-17 14:38 | MR ---
EXAMINATION TYPE: MR brain wo/w con DATE OF EXAM: 01/16/2024 COMPARISON: Most recent prior MRI July 10, 2023 and older studies HISTORY: MS, new blurry and double vision. TECHNIQUE: Multiplanar, multisequence images of the brain and brainstem is performed without and with IV contras t, utilizing 6.5 mL intravenous Gadavist gadolinium contrast is administered intravenously. Demyelin ating disease protocol with additional Sagittal Flair sequence performed. FINDINGS: T2 Lesions Present : Yes Approximate Number of Lesions: Approximately 20 Locations Identified : Predominantly deep and periventricular levels. Size of Reference Lesion(s): 1. More prominent 9 x 4 x 7 mm deep right frontal lesion axial image 25 and sagittal image 178 Enhancing Lesion(s) Present: No T1 Hypointense Lesion(s) Present: Yes Change from Prior: Slight progression in size of lesions. Diffusion weighted images demonstrate no evidence of a recent infarct or other diffusion abnormality. There is no worrisome extra-axial fluid collection. The ventricular system and cisternal spaces re main normal in size and appearance. The brain volume is age appropriate. Midline structures redemonstrate normal morphology. The craniocervical junction remains within kasey l limits. Post contrast images demonstrate no abnormal enhancement. The dural venous sinuses appear patent. The visualized sinuses are clear and the globes are intact. IMPRESSION: [id number] nonspecific white matter changes redemonstrated presumed on basis of kno wn demyelinating disease. Lesion slightly more prominent or larger from most recent MRI. No enhancing lesions are noted.
== END | disposition home or self-care (01) ==
LOC: RADMRIMAIN 18:02
PROVIDERS: ATTEND Psychiatry & Neurology Neurology
DX: G35 Multiple sclerosis (principal); H53.2 Diplopia; R90.82 White matter disease, unspecified
CPT/HCPCS: 70553; A9585

== ENCOUNTER → 2024-07-27 | Outpatient (CLI) | payer BC ==
[2024-07-27 23:39] LABS: Basophils # (A) 0.07 X 10*3/uL (0.00-0.10); Basophils % (A) 1.1 %; Eosinophils # (A) 0.27 X 10*3/uL (0.04-0.35); Eosinophils % (A) 4.4 %; HCT 36.1 % (37.2-46.3); HGB 12.3 g/dL (12.0-15.0); Lymphocytes % (A) 24.3 %; MCHC 34.1 g/dL (32.0-37.0); Mean Platelet Volume 10.4 FL (9.5-12.2); Monocytes # (A) 0.57 X 10*3/uL (0.20-1.00); Monocytes % (A) 9.2 %; NRBC Per 100 WBC 0 X 10*3/uL (0.00-0.01); Neutrophils # (A) 3.72 X 10*3/uL (1.80-7.70); Neutrophils % (A) 60.2 %; Platelet Count 286 X 10*3/uL (140-440); RDW 12.9 % (11.5-14.5); WBC 6.18 X 10*3/uL (4.50-10.00)
[2024-07-28 08:05] LABS: Blood Urea Nitrogen 5.2 mg/dL (9.0-27.0); Carbon Dioxide 27.6 mmol/L (21.6-31.8); Chloride 100 mmol/L (96-109); Glucose 84 mg/dL (70-110); Potassium 3.3 mmol/L (3.5-5.5); Sodium 140 mmol/L (135-145)
[2024-07-28 08:06] LABS: ALT 5 U/L (8-44); AST 12 U/L (13-35); Albumin 4.4 g/dL (3.8-4.9); Albumin/Globulin Ratio 1.57 Ratio (1.60-3.17); Alkaline Phosphatase 37 U/L (41-126); Calcium 9.6 mg/dL (8.7-10.3); Globulin 2.8 g/dL (1.6-3.3); Total Bilirubin 0.5 mg/dL (0.3-1.2); Total Protein 7.2 g/dL (6.2-8.2)
== END | disposition home or self-care (01) ==
LOC: LABWHC1 10:35
PROVIDERS: ATTEND Psychiatry & Neurology Neurology
DX: G35 Multiple sclerosis (principal); E55.9 Vitamin D deficiency, unspecified; Z79.899 Other long term (current) drug therapy
CPT/HCPCS: 36415; 80053; 82306; 85025

== ENCOUNTER → 2024-12-20 | Outpatient (CLI) | payer BC ==
--- NOTE | 2024-12-20 08:09 | MM ---
Reason for Exam: Screening (asymptomatic). Last mammogram was performed 1 year(s) and 8 month(s) ago. Patient History: Menarche at age 10. First Full-Term at age 21. Premenopausal. Hormonal Contraceptives, from age 19 until age 23. 05/05/2017, Benign Core Biopsy on the right side. Risk Values: Pham 5 year model risk: 0.9%. NCI Lifetime model risk: 9.4%. Prior Study Comparison: 04/08/2022 Bilateral MG screening mammo w CAD, [facility]. 04/10/2023 Bilateral MG screening mammo w CAD, [facility]. 04/14/2023 Right MG 3D work up w/cad RT, [facility]. Tissue Density: The breasts are heterogeneously dense, which may obscure small masses. Findings: Analyzed By CAD. There is no suspicious group of microcalcifications or new suspicious mass in either breast. Biopsy clip marker right breast. Stable chronic nodularity. Overall Assessment: Benign, BI-RAD 2 Management: Screening Mammogram of both breasts in 1 year. . Patient should continue monthly self-breast exams. A clinical breast exam by your physician is recommended on an annual basis. This exam should not preclude additional follow-up of suspicious palpable abnormalities. Note on Pham scores and lifetime risk: 1. A Pham score greater than 3% is considered moderate risk. If this is the case, consider specialist referral to assess eligibility for a risk reducing agent. 2. If overall lifetime risk for the development of breast cancer is 20% or higher, the patient may qualify for future screening with alternating mammogram and breast MRI. [facility], , 12/20/2024 8:06 AM. Electronically signed and approved by: Spike Randolph M.D. Radiologis
== END | disposition home or self-care (01) ==
LOC: RADMAMWWP 07:26
PROVIDERS: ATTEND Obstetrics & Gynecology
DX: Z12.31 Encounter for screening mammogram for malignant neoplasm of breast (principal); R92.333 Mammographic heterogeneous density, bilateral breasts; Z92.0 Personal history of contraception
CPT/HCPCS: 77063; 77067